=== PATIENT | female | born 2000 | race Caucasian/White ===

== ENCOUNTER 2018-04-04 11:07 | Emergency (ER) | payer OTHER ==
[~2018-04-04] VITALS: Ht 157.4 cm; Wt 72.6 kg
[~2018-04-04 11:07] MED LIST: Claritin-D 10 M1 T24 PO; MOTRIN600 MG PO; PERCOCET 325 MG1 TA7 PO; PRENATAL1 TA3 PO; PRENATAL1 TA7 PO; ZANTAC 150150 MG PO; ZITHROMAX Z-PA250 MG PO
[2018-04-04 11:10] VITALS: BP 139/74
[2018-04-04 11:32] LABS: BILIRUBIN NEGATIVE (NEGATIVE); BLOOD 3+ (NEGATIVE); CLARITY CLEAR (CLEAR); COLOR YELLOW (YELLOW); GLUCOSE NEGATIVE (NEGATIVE); KETONE NEGATIVE (NEGATIVE); LEUKO ESTERASE TRACE (NEGATIVE); NITRITE NEGATIVE (NEGATIVE); SPECIFIC GRAVITY <= 1.005 (1.005-1.030); UROBILINOGEN 0.2 E.U./dl (0.2-1.0)
[2018-04-04 11:44] LABS: BACTERIA TRACE; RBC 41-50 rbc/hpf (0-2)
[2018-04-04] MEDS ORDERED: DIFLUCAN150 MG PO (12:22)
[2018-04-06 05:05] LABS: GONOCOCCUS BY NAA Negative (Negative)
== END 2018-04-04 12:40 | disposition home or self-care (01) ==
LOC: ED 11:07
PROVIDERS: Emergency Medicine; Nurse Practitioner Family
DX: N76.0 Acute vaginitis (principal); Z79.899 Other long term (current) drug therapy

== ENCOUNTER 2018-10-10 15:48 | Emergency (ER) | payer OTHER ==
[~2018-10-10] VITALS: Ht 157.4 cm; Wt 81.6 kg
[~2018-10-10 15:48] MED LIST changes: +DIFLUCAN150 MG PO
[2018-10-10 15:50] VITALS: BP 129/85
[2018-10-10 16:48] LABS: BILIRUBIN NEGATIVE (NEGATIVE); BLOOD NEGATIVE (NEGATIVE); CLARITY SL CLOUDY (CLEAR); COLOR YELLOW (YELLOW); GLUCOSE NEGATIVE (NEGATIVE); KETONE NEGATIVE (NEGATIVE); LEUKO ESTERASE TRACE (NEGATIVE); NITRITE NEGATIVE (NEGATIVE); SPECIFIC GRAVITY 1.015 (1.005-1.030); UROBILINOGEN 0.2 E.U./dl (0.2-1.0)
[2018-10-10 17:00] LABS: BACTERIA 2+; EPITHELIAL CELLS TNTC
[2018-10-10 17:41] LABS: BASO % 0.4 % (0.0-1.0); EOS % 0.4 % (1.0-4.0); HEMATOCRIT 47.3 % (37.0-47.0); HEMOGLOBIN 15.7 g/dl (12.0-16.0); LYMPH # 2.8 10*3/uL (1.3-4.4); LYMPH % 26.2 % (27.0-41.0); MEAN CELL VOLUME 94.2 fl (81.0-99.0); MEAN CORPUSCULAR HGB 31.3 pg (27.0-31.0); MEAN CORPUSCULAR HGB CONC 33.2 g/dl (33.0-37.0); MEAN PLATELET VOLUME 10.6 fl (9.6-12.3); MONO # 0.7 10*3/uL (0.1-1.0); MONO % 6.3 % (3.0-9.0); NEUT # 7.1 10*3/uL (2.3-7.9); NEUT % 66.2 % (47.0-73.0); PLATELET COUNT AUTOMATED 231 10*3/uL (130-400); RED BLOOD COUNT 5.02 10*6/uL (4.10-5.10); RED CELL DISTRI WIDTH 11.6 % (0-14.5); WHITE BLOOD COUNT 10.7 10*3/uL (4.8-10.8)
[2018-10-10 18:12] LABS: ALBUMIN 3.9 gm/dl (3.1-4.5); ALKALINE PHOSPHATASE 101 U/L (45-117); BUN 7 mg/dl (7-24); CHLORIDE 106 mmol/L (98-107); CREATININE 0.75 mg/dL (0.55-1.02); LIPASE 71 U/L (73-393); POTASSIUM 3.9 mmol/L (3.5-5.1); SGOT/AST 13 IU/L (3-35); SGPT/ALT 29 U/L (12-78); SODIUM 140 mmol/L (136-145); TOTAL PROTEIN 7.4 gm/dL (6.4-8.2)
[2018-10-10] MEDS ORDERED: MACROBID100 M1 PO (19:30)
== END 2018-10-10 19:50 | disposition home or self-care (01) ==
LOC: ED 15:48
PROVIDERS: Emergency Medicine; Nurse Practitioner Family
DX: N39.0 Urinary tract infection, site not specified (principal); Z79.899 Other long term (current) drug therapy

== ENCOUNTER → 2018-12-26 | Outpatient (CLI) | payer OTHER ==
[~2018-12-26] MED LIST changes: +MACROBID100 M1 PO
== END | disposition home or self-care (01) ==
LOC: US 16:00
DX: Z34.81 Encounter for supervision of other normal pregnancy, first trimester (principal); Z3A.08 8 weeks gestation of pregnancy

== ENCOUNTER → 2019-03-05 | Outpatient (CLI) | payer OTHER | END | disposition home or self-care (01) | LOC: US 13:00 | DX: Z34.82 Encounter for supervision of other normal pregnancy, second trimester (principal); Z3A.18 18 weeks gestation of pregnancy ==

== ENCOUNTER → 2019-05-31 | Outpatient (CLI) | payer OTHER | END | disposition home or self-care (01) | LOC: US 13:53 | DX: Z34.93 Encounter for supervision of normal pregnancy, unspecified, third trimester (principal); Z3A.30 30 weeks gestation of pregnancy ==

== ENCOUNTER → 2020-04-23 | Outpatient (CLI) | payer OTHER | END | disposition home or self-care (01) | LOC: US 13:00 | PROVIDERS: ATTEND Nurse Practitioner Women's Health | DX: Z34.01 Encounter for supervision of normal first pregnancy, first trimester (principal); Z3A.09 9 weeks gestation of pregnancy ==

== ENCOUNTER → 2020-07-02 | Outpatient (CLI) | payer OTHER | END | disposition home or self-care (01) | LOC: US 14:59 | PROVIDERS: ATTEND Nurse Practitioner Women's Health | DX: Z34.80 Encounter for supervision of other normal pregnancy, unspecified trimester (principal); Z3A.19 19 weeks gestation of pregnancy ==

== ENCOUNTER → 2020-09-29 | Outpatient (CLI) | payer OTHER | END | disposition home or self-care (01) | LOC: US 09-11 14:30 | PROVIDERS: ATTEND Nurse Practitioner Women's Health | DX: Z34.83 Encounter for supervision of other normal pregnancy, third trimester (principal); Z3A.32 32 weeks gestation of pregnancy ==

== ENCOUNTER → 2020-11-10 | Outpatient (CLI) | payer OTHER | END | disposition home or self-care (01) | LOC: COVID19 13:34 | PROVIDERS: ATTEND Obstetrics & Gynecology | DX: Z34.90 Encounter for supervision of normal pregnancy, unspecified, unspecified trimester (principal); Z3A.00 Weeks of gestation of pregnancy not specified; Z20.822 Contact with and (suspected) exposure to COVID-19 ==

== ENCOUNTER 2021-04-30 23:14 | Emergency (ER) | payer OTHER ==
[~2021-04-30] VITALS: Ht 157.4 cm; Wt 81.6 kg
[2021-05-01 00:02] VITALS: BP 112/64
== END 2021-05-01 02:11 | disposition home or self-care (01) ==
LOC: ED 23:14
DX: U07.1 COVID-19 (principal); F17.200 Nicotine dependence, unspecified, uncomplicated; Z79.899 Other long term (current) drug therapy

== ENCOUNTER 2023-04-11 17:22 | Emergency (ER) | payer OTHER | END 2023-04-11 18:43 | disposition left against medical advice (07) | LOC: ED 17:22 | DX: S99.919A Unspecified injury of unspecified ankle, initial encounter (principal); Z53.21 Procedure and treatment not carried out due to patient leaving prior to being seen by health care provider; X50.1XXA Overexertion from prolonged static or awkward postures, initial encounter; Y93.89 Activity, other specified; Y92.89 Other specified places as the place of occurrence of the external cause; Y99.8 Other external cause status ==

== ENCOUNTER → 2023-04-25 | Outpatient (CLI) | payer OTHER ==
[2023-04-25 15:12] LABS: URINE AMPHETAMINES Negative (1000ng/ml); URINE BARBITURATES Negative (200ng/ml); URINE BENZODIAZEPINES Negative (200ng/ml); URINE CANNABINOIDS (THC) Negative (50ng/ml); URINE COCAINE Negative (300ng/ml); URINE METHADONE Negative (300ng/ml); URINE OPIATES Negative (300ng/ml); URINE PHENCYCLIDINE Negative (25ng/ml)
== END | disposition home or self-care (01) ==
LOC: LAB 14:37
PROVIDERS: ATTEND Nurse Practitioner Family
DX: Z79.899 Other long term (current) drug therapy (principal)

== ENCOUNTER → 2023-05-17 | Outpatient (CLI) | payer OTHER | END | disposition home or self-care (01) | LOC: LAB 15:57 | PROVIDERS: ATTEND Nurse Practitioner Women's Health | DX: N93.9 Abnormal uterine and vaginal bleeding, unspecified (principal) ==

== ENCOUNTER → 2023-05-19 | Outpatient (CLI) | payer OTHER | END | disposition home or self-care (01) | LOC: LAB 14:48 | PROVIDERS: ATTEND Nurse Practitioner Women's Health | DX: N92.6 Irregular menstruation, unspecified (principal) ==

== ENCOUNTER → 2023-05-23 | Outpatient (CLI) | payer OTHER | END | disposition home or self-care (01) | LOC: LAB 16:09 | PROVIDERS: ATTEND Nurse Practitioner Women's Health | DX: N92.6 Irregular menstruation, unspecified (principal) ==

== ENCOUNTER → 2023-05-24 | Outpatient (CLI) | payer OTHER | END | disposition home or self-care (01) | LOC: MRI 03:01 | PROVIDERS: ATTEND Podiatrist | DX: M25.572 Pain in left ankle and joints of left foot (principal) ==

== ENCOUNTER → 2023-05-26 | Outpatient (CLI) | payer OTHER | END | disposition home or self-care (01) | LOC: LAB 12:22 → US 12:30 | PROVIDERS: ATTEND Nurse Practitioner Women's Health | DX: Z33.2 Encounter for elective termination of pregnancy (principal); N93.9 Abnormal uterine and vaginal bleeding, unspecified; N83.201 Unspecified ovarian cyst, right side ==

== ENCOUNTER → 2023-08-23 | Outpatient (CLI) | payer OTHER | END | disposition home or self-care (01) | LOC: RAD 14:13 | PROVIDERS: ATTEND Family Medicine | DX: M54.50 Low back pain, unspecified (principal) ==

== ENCOUNTER → 2023-11-03 | Outpatient (CLI) | payer OTHER ==
[~2023-11-03] MED LIST changes: +PREDNISONE10 MG PO; +SUMATRIPTAN SU100 M1 PO
[2023-11-03 13:58] LABS: BASO % 0.4 % (0.0-1.0); EOS # 0.1 10*3/uL (0.0-0.4); EOS % 0.8 % (1.0-4.0); HEMATOCRIT 49.5 % (37.0-47.0); LYMPH # 2.6 10*3/uL (1.3-4.4); LYMPH % 27.8 % (27.0-41.0); MEAN CELL VOLUME 97.1 fl (81.0-99.0); MEAN CORPUSCULAR HGB 31.6 pg (27.0-31.0); MEAN CORPUSCULAR HGB CONC 32.5 g/dl (33.0-37.0); MEAN PLATELET VOLUME 11.1 fl (9.6-12.3); MONO # 0.6 10*3/uL (0.1-1.0); MONO % 6.9 % (3.0-9.0); NEUT # 5.9 10*3/uL (2.3-7.9); NEUT % 63.9 % (47.0-73.0); PLATELET COUNT AUTOMATED 187 10*3/uL (130-400); RED CELL DISTRI WIDTH 11.7 % (0-14.5); RETICULOCYTE % 1.49 % (0.50-2.50); WHITE BLOOD COUNT 9.2 10*3/uL (4.8-10.8)
[2023-11-03 14:10] LABS: BILIRUBIN Negative (Negative); BLOOD Negative (Negative); CLARITY Clear (Clear); COLOR Yellow (Yellow); GLUCOSE Negative (Negative); KETONE Trace (Negative); LEUKO ESTERASE Negative (Negative); NITRITE Negative (Negative); PH 6.5 (4.5-8.0); SPECIFIC GRAVITY 1.005 (1.001-1.030); UROBILINOGEN 0.2 E.U./dl (0.0-1.0)
[2023-11-03 14:18] LABS: EPITHELIAL CELLS 21-30; RBC 0-2 rbc/hpf (0-2)
[2023-11-03 14:34] LABS: ALKALINE PHOSPHATASE 85 U/L (46-116); BUN 9 mg/dl (9-23); CHLORIDE 109 mmol/L (98-107); CHOLESTEROL 207 mg/dL (<200); GAMMA GLUTAMYL TRANSPEPTIDASE 16 U/L (0-73); LDL CHOLESTEROL 132 mg/dL (9-159); SGPT/ALT 26 U/L (5-49); THYROXINE (T4) TOTAL 7.1 ug/dl (4.5-10.9); TOTAL PROTEIN 6.9 gm/dL (6.0-8.0); TRIGLYCERIDES 157 mg/dl (<150); URIC ACID 3.8 mg/dL (3.1-7.8)
[2023-11-03 14:49] LABS: VITAMIN D, 25-HYDROXY 23.1 ng/mL (30-100)
[2023-11-04 14:09] LABS: ANTI-DSDNA ANTIBODIES 1 IU/mL (0-9)
== END | disposition home or self-care (01) ==
LOC: LAB 13:39
PROVIDERS: ATTEND Family Medicine
DX: E78.5 Hyperlipidemia, unspecified (principal); E55.9 Vitamin D deficiency, unspecified; R79.89 Other specified abnormal findings of blood chemistry; R53.83 Other fatigue; R74.8 Abnormal levels of other serum enzymes

== ENCOUNTER 2023-11-05 17:15 | Emergency (ER) | payer OTHER ==
[~2023-11-05] VITALS: Ht 157.4 cm; Wt 89.8 kg
[~2023-11-05 17:15] MED LIST changes: -PREDNISONE10 MG PO; -SUMATRIPTAN SU100 M1 PO
[2023-11-05 17:49] VITALS: BP 118/63
[2023-11-05] MEDS ORDERED: Ketorolac Tromethamine 30 MG/ML VIAL IV ONE (18:15)
[2023-11-05] MEDS ORDERED: Dexamethasone Sodium Phospha 20 MG/5 ML VIAL IV ONE (18:15)
[2023-11-05] MEDS ORDERED: SODIUM CHLORIDE 0.9% 1,000 ML IV ONE (18:15)
[2023-11-05] MEDS ORDERED: MAGNESIUM SULFATE 50 ML IV ONE (18:15)
[2023-11-05] MEDS ORDERED: Metoclopramide Hydrochloride 10 MG/2 ML AMP IV ONE (18:15)
[2023-11-05] MEDS ORDERED: diphenhydrAMINE hydrochloride 50 MG/ML VIAL IV ONE (18:15)
[2023-11-05] MEDS ORDERED: SUMATRIPTAN SU100 M1 PO (18:55)
[2023-11-05] MEDS ORDERED: PREDNISONE10 MG PO (18:56)
== END 2023-11-05 19:43 | disposition home or self-care (01) ==
LOC: ED 17:15
DX: G43.909 Migraine, unspecified, not intractable, without status migrainosus (principal); Z79.899 Other long term (current) drug therapy

== ENCOUNTER → 2023-11-15 | Outpatient (CLI) | payer OTHER ==
[~2023-11-15] MED LIST changes: +GADOTERATE MEGLUMINE 10 MMOL/20 ML VIAL IV ONE; +PREDNISONE10 MG PO; +SUMATRIPTAN SU100 M1 PO
== END | disposition home or self-care (01) ==
LOC: MRI 11-14 10:00
PROVIDERS: ATTEND Family Medicine
DX: G43.909 Migraine, unspecified, not intractable, without status migrainosus (principal); R90.82 White matter disease, unspecified

== ENCOUNTER 2024-01-07 13:22 | Emergency (ER) | payer OTHER ==
[~2024-01-07] VITALS: Ht 157.4 cm; Wt 87.5 kg
[~2024-01-07 13:22] MED LIST changes: -GADOTERATE MEGLUMINE 10 MMOL/20 ML VIAL IV ONE
[2024-01-07 13:33] VITALS: BP 122/71
[2024-01-07] MEDS ORDERED: 'XANAX1 MG PO (13:35)
[2024-01-07] MEDS ORDERED: LURASIDONE HCL40 MG PO (13:35)
[2024-01-07] MEDS ORDERED: AMLODIPINE BES2.5 MG PO (13:35)
[2024-01-07] MEDS ORDERED: IOHEXOL 300 MG/ML 100 ML VIAL IV ONE (13:55)
[2024-01-07 13:56] LABS: BILIRUBIN Negative (Negative); BLOOD 3+ (Negative); CLARITY Clear (Clear); COLOR Orange (Yellow); GLUCOSE Negative (Negative); KETONE Negative (Negative); LEUKO ESTERASE Trace (Negative); NITRITE Negative (Negative)
[2024-01-07 13:57] LABS: BASO % 0.4 % (0.0-1.0); EOS # 0.1 10*3/uL (0.0-0.4); EOS % 0.9 % (1.0-4.0); HEMATOCRIT 43.9 % (37.0-47.0); LYMPH # 2.2 10*3/uL (1.3-4.4); LYMPH % 32.1 % (27.0-41.0); MEAN CORPUSCULAR HGB CONC 33.7 g/dl (33.0-37.0); MEAN PLATELET VOLUME 11.1 fl (9.6-12.3); MONO # 0.7 10*3/uL (0.1-1.0); MONO % 9.8 % (3.0-9.0); NEUT # 3.8 10*3/uL (2.3-7.9); NEUT % 56.7 % (47.0-73.0); PLATELET COUNT AUTOMATED 191 10*3/uL (130-400); RED BLOOD COUNT 4.62 10*6/uL (4.10-5.10); RED CELL DISTRI WIDTH 11.9 % (0-14.5); WHITE BLOOD COUNT 6.7 10*3/uL (4.8-10.8)
[2024-01-07 14:03] LABS: RBC TNTC rbc/hpf (0-2)
[2024-01-07 14:19] LABS: ALKALINE PHOSPHATASE 94 U/L (46-116); BUN 5 mg/dl (9-23); CHLORIDE 111 mmol/L (98-107); POTASSIUM 3.6 mmol/L (3.4-5.1); SGPT/ALT 14 U/L (5-49); TOTAL PROTEIN 6.4 gm/dL (6.0-8.0)
[2024-01-07] MEDS ORDERED: FLOMAX0.4 MG PO (16:28)
[2024-01-07] MEDS ORDERED: Ondansetron4 MG PO (16:28)
[2024-01-07] MEDS ORDERED: KETOROLAC10 MG PO (16:28)
[2024-01-07] MEDS ORDERED: Ketorolac Tromethamine 10 MG TAB PO ONE (16:30)
[2024-01-07] MEDS ORDERED: Tamsulosin Hydrochloride 0.4 MG CAP PO ONE (16:30)
== END 2024-01-07 16:40 | disposition home or self-care (01) ==
LOC: ED 13:22
PROVIDERS: Nurse Practitioner Family
DX: N20.0 Calculus of kidney (principal); M54.50 Low back pain, unspecified; Z79.899 Other long term (current) drug therapy; W18.39XA Other fall on same level, initial encounter; Y93.89 Activity, other specified; Y92.828 Other wilderness area as the place of occurrence of the external cause; Y99.8 Other external cause status

== ENCOUNTER → 2024-04-10 | Outpatient (CLI) | payer OTHER ==
[~2024-04-10] MED LIST changes: +'XANAX1 MG PO; +AMLODIPINE BES2.5 MG PO; +FLOMAX0.4 MG PO; +KETOROLAC10 MG PO; +LURASIDONE HCL40 MG PO; +Ondansetron4 MG PO
[2024-04-10 13:34] LABS: BASO % 0.4 % (0.0-1.0); EOS # 0.1 10*3/uL (0.0-0.4); HEMATOCRIT 48.6 % (37.0-47.0); LYMPH # 2.9 10*3/uL (1.3-4.4); LYMPH % 29.7 % (27.0-41.0); MEAN CELL VOLUME 96.8 fl (81.0-99.0); MEAN CORPUSCULAR HGB 31.9 pg (27.0-31.0); MEAN CORPUSCULAR HGB CONC 32.9 g/dl (33.0-37.0); MEAN PLATELET VOLUME 10.2 fl (9.6-12.3); MONO # 0.6 10*3/uL (0.1-1.0); MONO % 6.1 % (3.0-9.0); NEUT # 6.1 10*3/uL (2.3-7.9); NEUT % 62.5 % (47.0-73.0); PLATELET COUNT AUTOMATED 201 10*3/uL (130-400); RED BLOOD COUNT 5.02 10*6/uL (4.10-5.10); RED CELL DISTRI WIDTH 11.9 % (0-14.5); RETICULOCYTE % 1.38 % (0.50-2.50); WHITE BLOOD COUNT 9.7 10*3/uL (4.8-10.8)
[2024-04-10 13:35] LABS: BILIRUBIN Negative (Negative); BLOOD Negative (Negative); CLARITY Turbid (Clear); COLOR Yellow (Yellow); GLUCOSE Negative (Negative); KETONE Negative (Negative); LEUKO ESTERASE 1+ (Negative); NITRITE Negative (Negative)
[2024-04-10 13:57] LABS: BACTERIA 2+; EPITHELIAL CELLS TNTC
[2024-04-10 14:19] LABS: ALKALINE PHOSPHATASE 105 U/L (46-116); BUN 6 mg/dl (9-23); CHLORIDE 108 mmol/L (98-107); CHOLESTEROL 223 mg/dL (<200); GAMMA GLUTAMYL TRANSPEPTIDASE 19 U/L (0-73); LDL CHOLESTEROL 151 mg/dL (9-159); POTASSIUM 3.7 mmol/L (3.4-5.1); SGPT/ALT 8 U/L (5-49); T3 UPTAKE 30.1 % (22.4-36.7); THYROXINE (T4) TOTAL 7.6 ug/dl (4.5-10.9); TOTAL PROTEIN 7.3 gm/dL (6.0-8.0); TRIGLYCERIDES 173 mg/dl (<150); URIC ACID 4.5 mg/dL (3.1-7.8)
[2024-04-10 14:20] LABS: BETA-HCG, QUANT < 3.0 mIU/mL (3-10)
[2024-04-10 14:32] LABS: VITAMIN D, 25-HYDROXY 27.6 ng/mL (30-100)
[2024-04-11 13:07] LABS: SEX HORMONE BINDING GLOBULIN 35.4 nmol/L (24.6-122.0)
[2024-04-11 17:07] LABS: ANTI-DSDNA ANTIBODIES 1 IU/mL (0-9)
== END | disposition home or self-care (01) ==
LOC: LAB 12:48
PROVIDERS: ATTEND Family Medicine
DX: R06.02 Shortness of breath (principal)

== ENCOUNTER → 2024-04-13 | Outpatient (CLI) | payer OTHER ==
[2024-04-13 11:07] LABS: BASO % 0.5 % (0.0-1.0); BILIRUBIN Negative (Negative); BLOOD Negative (Negative); CLARITY Turbid (Clear); COLOR Yellow (Yellow); EOS % 0.6 % (1.0-4.0); GLUCOSE Negative (Negative); HEMATOCRIT 42.7 % (37.0-47.0); KETONE Trace (Negative); LEUKO ESTERASE Trace (Negative); LYMPH # 1.6 10*3/uL (1.3-4.4); LYMPH % 23.6 % (27.0-41.0); MEAN CELL VOLUME 95.3 fl (81.0-99.0); MEAN CORPUSCULAR HGB 32.6 pg (27.0-31.0); MEAN CORPUSCULAR HGB CONC 34.2 g/dl (33.0-37.0); MEAN PLATELET VOLUME 10.8 fl (9.6-12.3); MONO # 0.4 10*3/uL (0.1-1.0); MONO % 6.7 % (3.0-9.0); NEUT # 4.5 10*3/uL (2.3-7.9); NEUT % 68.3 % (47.0-73.0); NITRITE Negative (Negative); PH 7.5 (4.5-8.0); PLATELET COUNT AUTOMATED 174 10*3/uL (130-400); RED BLOOD COUNT 4.48 10*6/uL (4.10-5.10); RED CELL DISTRI WIDTH 12.2 % (0-14.5); RETICULOCYTE % 1.33 % (0.50-2.50); SPECIFIC GRAVITY 1.015 (1.001-1.030); WHITE BLOOD COUNT 6.6 10*3/uL (4.8-10.8)
[2024-04-13 11:37] LABS: RBC 0-2 rbc/hpf (0-2)
[2024-04-13 11:49] LABS: ALKALINE PHOSPHATASE 88 U/L (46-116); BUN 7 mg/dl (9-23); CHLORIDE 112 mmol/L (98-107); CHOLESTEROL 205 mg/dL (<200); GAMMA GLUTAMYL TRANSPEPTIDASE 18 U/L (0-73); LDL CHOLESTEROL 138 mg/dL (9-159); POTASSIUM 3.5 mmol/L (3.4-5.1); SGPT/ALT 11 U/L (5-49); TOTAL PROTEIN 6.5 gm/dL (6.0-8.0); TRIGLYCERIDES 136 mg/dl (<150)
[2024-04-13 11:54] LABS: VITAMIN D, 25-HYDROXY 26.5 ng/mL (30-100)
[2024-04-14 08:11] LABS: THYROID PEROXIDASE (TPO) AB <9 IU/mL (0-34)
[2024-04-16 14:07] LABS: ALTERNARIA ALTERNATA, IGE <0.10 kU/L (Class 0); AMERICAN ELM, IGE <0.10 kU/L (Class 0); ASPERGILLUS FUMIGATU, IGE <0.10 kU/L (Class 0); BERMUDA GRASS, IGE <0.10 kU/L (Class 0); BIRCH, COMMON SILVER IGE <0.10 kU/L (Class 0); CLADOSPORIUM HERBARU, IGE <0.10 kU/L (Class 0); D FARINAE MITE <0.10 kU/L (Class 0); D PTERONYSSINUS <0.10 kU/L (Class 0); DOG DANDER, IGE <0.10 kU/L (Class 0); MAPLE LEAF SYCAMORE, IGE <0.10 kU/L (Class 0); MAPLE/BOX ELDER, IGE <0.10 kU/L (Class 0); MOUSE URINE IGE <0.10 kU/L (Class 0); PENICILLIUM CHRYSOGENUM, IGE <0.10 kU/L (Class 0); ROUGH PIGWEED, IGE <0.10 kU/L (Class 0); SHEEP SORREL (DOCK), IGE <0.10 kU/L (Class 0); SHORT RAGWEED, IGE <0.10 kU/L (Class 0); TIMOTHY, IGE <0.10 kU/L (Class 0); WALNUT TREE, IGE <0.10 kU/L (Class 0); WHITE ASH, IGE <0.10 kU/L (Class 0); WHITE MULBERRY, IGE <0.10 kU/L (Class 0); WHITE OAK, IGE <0.10 kU/L (Class 0)
== END | disposition home or self-care (01) ==
LOC: LAB 10:27
PROVIDERS: ATTEND Family Medicine
DX: E78.5 Hyperlipidemia, unspecified (principal); R79.89 Other specified abnormal findings of blood chemistry; R53.83 Other fatigue; E55.9 Vitamin D deficiency, unspecified

== ENCOUNTER → 2024-04-24 | Outpatient (CLI) | payer OTHER | END | disposition home or self-care (01) | LOC: US 02:24 | PROVIDERS: ATTEND Family Medicine | DX: R10.84 Generalized abdominal pain (principal); R10.2 Pelvic and perineal pain ==

== ENCOUNTER 2024-08-04 10:59 | Emergency (ER) | payer OTHER ==
[~2024-08-04] VITALS: Ht 157.4 cm; Wt 93.9 kg
[2024-08-04 11:09] VITALS: BP 133/80
[2024-08-04] MEDS ORDERED: DIAZEPAM5 MG PO (11:14)
[2024-08-04] MEDS ORDERED: AJOVY AUTO225 MG/1.5 SQ (11:15)
[2024-08-04] MEDS ORDERED: Ketorolac Tromethamine 30 MG/ML VIAL IV ONE (11:25)
[2024-08-04 11:34] LABS: BILIRUBIN Negative (Negative); BLOOD 3+ (Negative); CLARITY Clear (Clear); COLOR Yellow (Yellow); GLUCOSE Negative (Negative); KETONE Negative (Negative); LEUKO ESTERASE Negative (Negative); NITRITE Negative (Negative); PH 6.5 (4.5-8.0); SPECIFIC GRAVITY <= 1.005 (1.001-1.030); UROBILINOGEN 0.2 E.U./dl (0.0-1.0)
[2024-08-04 11:38] LABS: BASO # 0.1 10*3/uL (0.0-0.1); BASO % 0.6 % (0.0-1.0); EOS # 0.2 10*3/uL (0.0-0.4); EOS % 1.7 % (1.0-4.0); HEMATOCRIT 49.2 % (37.0-47.0); MEAN CORPUSCULAR HGB 31.9 pg (27.0-31.0); MEAN CORPUSCULAR HGB CONC 32.5 g/dl (33.0-37.0); MEAN PLATELET VOLUME 10.4 fl (9.6-12.3); MONO # 0.7 10*3/uL (0.1-1.0); MONO % 7.5 % (3.0-9.0); NEUT # 4.9 10*3/uL (2.3-7.9); NEUT % 55.4 % (47.0-73.0); PLATELET COUNT AUTOMATED 208 10*3/uL (130-400); RED BLOOD COUNT 5.02 10*6/uL (4.10-5.10); RED CELL DISTRI WIDTH 11.5 % (0-14.5); WHITE BLOOD COUNT 8.8 10*3/uL (4.8-10.8)
[2024-08-04] MEDS ORDERED: IOHEXOL 300 MG/ML 100 ML VIAL IV ONE (11:50)
[2024-08-04 11:56] LABS: BACTERIA TRACE
[2024-08-04 11:57] LABS: EPITHELIAL CELLS 31-40
[2024-08-04 12:01] LABS: ALKALINE PHOSPHATASE 89 U/L (46-116); BUN 11 mg/dl (9-23); CHLORIDE 107 mmol/L (98-107); LIPASE 34 U/L (12-53); SGPT/ALT 13 U/L (5-49); TOTAL PROTEIN 7.2 gm/dL (6.0-8.0)
[2024-08-04] MEDS ORDERED: IOHEXOL 300 MG/ML 100 ML VIAL ONE (12:07)
[2024-08-04] MEDS ORDERED: CIPRO500 MG PO (13:11)
[2024-08-04] MEDS ORDERED: METRONIDAZOLE500 M1 PO (13:11)
== END 2024-08-04 13:25 | disposition home or self-care (01) ==
LOC: ED 10:59
PROVIDERS: Physician Assistant Medical
DX: K52.9 Noninfective gastroenteritis and colitis, unspecified (principal); F41.9 Anxiety disorder, unspecified; Z87.442 Personal history of urinary calculi

== ENCOUNTER → 2024-08-16 | Outpatient (CLI) | payer OTHER ==
[~2024-08-16] MED LIST changes: +AJOVY AUTO225 MG/1.5 SQ; +CIPRO500 MG PO; +DIAZEPAM5 MG PO; +METRONIDAZOLE500 M1 PO
== END | disposition home or self-care (01) ==
LOC: US 08:07
PROVIDERS: ATTEND Family Medicine
DX: K76.0 Fatty (change of) liver, not elsewhere classified (principal); R10.84 Generalized abdominal pain; R10.2 Pelvic and perineal pain; R10.11 Right upper quadrant pain

== ENCOUNTER 2025-05-27 09:59 | Emergency (ER) | payer OTHER ==
[~2025-05-27] VITALS: Ht 157.4 cm; Wt 89.8 kg
[~2025-05-27 09:59] MED LIST changes: +AMOX-CLAV 875-1 EACH PO
[2025-05-27 10:11] VITALS: BP 130/73
[2025-05-27] MEDS ORDERED: Acetaminophen/Oxycodone 5 MG/325 MG TABLET PO ONE (11:20)
[2025-05-27 11:39] LABS: BASO # 0.1 10*3/uL (0.0-0.1); BASO % 0.7 % (0.0-1.0); EOS # 0.1 10*3/uL (0.0-0.4); EOS % 1.4 % (1.0-4.0); MEAN CELL VOLUME 95.2 fl (81.0-99.0); MEAN CORPUSCULAR HGB 28.9 pg (27.0-31.0); MEAN PLATELET VOLUME 10.2 fl (9.6-12.3); MONO # 0.5 10*3/uL (0.1-1.0); MONO % 6.1 % (3.0-9.0); NEUT # 4.8 10*3/uL (2.3-7.9); NEUT % 61.8 % (47.0-73.0); NUCLEATED RED BLOOD CELL 0.0 % (0.0-0.0); NUCLEATED RED BLOOD CELL 0.0 10*3/uL (0.0-0.0); PLATELET COUNT AUTOMATED 295 10*3/uL (130-400); RED CELL DISTRI WIDTH 11.9 % (0-14.5)
[2025-05-27 11:59] LABS: BUN 12 mg/dl (9-23)
[2025-05-27] MEDS ORDERED: VIBRAMYCIN100 MG PO (12:04)
[2025-05-27] MEDS ORDERED: PERCOCET 5-3251 EACH PO (12:05)
== END 2025-05-27 12:16 | disposition home or self-care (01) ==
LOC: ED 09:59
PROVIDERS: Nurse Practitioner Family
DX: T81.49XA Infection following a procedure, other surgical site, initial encounter (principal); G43.909 Migraine, unspecified, not intractable, without status migrainosus; Z87.440 Personal history of urinary (tract) infections; Z86.16 Personal history of COVID-19; Y92.89 Other specified places as the place of occurrence of the external cause